=== PATIENT | male | born 1945 | race Caucasian/White ===

== ENCOUNTER 2021-05-31 12:04 | Emergency (ER) | payer MEDICARE, SELFPAY ==
[2021-05-31] VITALS (36 sets, daily range): BP systolic 131–155; BP diastolic 57–101; PULSE 69–86; RESP 14–25; TEMP 36.4; O2SAT 63–100
--- NOTE | ~2021-05-31 | XR_ITS ---
EXAMINATION: XR chest 2V DATE: 05/31/2021 12:27 INDICATION: Weakness. TECHNIQUE: Frontal and lateral views of the chest were obtained. COMPARISON: None. FINDINGS: The chest demonstrates clear lungs without pneumonia, pleural effusion, or pneumothorax. Th e heart size is normal. IMPRESSION: 1. No acute cardiopulmonary disease. Reviewed, dictated and finalized at location A.
--- NOTE | 2021-05-31 12:10 | ECG_ITS ---
Measurements Intervals [place] Rate: 77 P: WI: 0 QRS: 38 QRSD: 76 T: 28 QT: 377 QTc: 428 Interpretive Statements ATRIAL FIBRILLATION LOW VOLTAGE EKG NO PREVIOUS ECG AVAILABLE FOR COMPARISON Electronically Signed On 05-31-2021 18:56:58 CDT by Adriana Pollock M.D.
[2021-05-31 12:30] LABS: Basophils Percent Auto 0.4 % (0.2-1.2); Eosinophils Absolute Auto 0.6 K/mm3 (0-0.3); Eosinophils Percent Auto 11.2 % (0-4.4); Hematocrit 29.3 % (42.0-52.0); Hemoglobin 9.2 g/dL (14.0-18.0); Immature Granulocyte Absolute 0.03 K/mm3 (0.00-0.031); Immature Granulocyte Percent A 0.5 % (0-0.5); Lymphocytes Absolute Auto 0.57 K/mm3 (0.9-3.2); Lymphocytes Percent Auto 10.2 % (18.3-44.2); Mean Corpuscular HGB Conc 31.4 g/dl (32-36); Mean Corpuscular Hemoglobin 29.6 pg (26-34); Mean Corpuscular Volume 94.2 fl (80-100); Mean Platelet Volume 7.9 fl (7.4-10.4); Monocytes Absolute Auto 0.5 K/mm3 (0.1-0.6); Monocytes Percent Auto 9.4 % (2.6-8.5); Neutrophils Absolute Auto 3.8 K/mm3 (1.3-6.7); Neutrophils Percent Auto 68.3 % (45.5-73.1); Platelet Count Result 133 k/mm3 (150-375); Red Blood Count 3.11 M/mm3 (4.6-6.20); Red Cell Distribution Width 14.6 % (11.5-14.5); White Blood Count 5.6 K/mm3 (4.5-10.0)
--- NOTE | 2021-05-31 12:31 | PC.NURSE ---
EDP at bedside to assess pt.
[2021-05-31 12:36] LABS: Alanine Aminotransferase 12 U/L (4-50); Albumin Level 3.4 g/dL (3.5-5.1); Alkaline Phosphatase 62 U/L (38-126); Anion Gap 7 mmol/L (8-16); Aspartate Amino Transferase 23 U/L (17-59); Bilirubin,Total 0.4 mg/dL (0.2-1.3); Blood Urea Nitrogen 21 mg/dL (9-20); Calcium 8.5 mg/dL (8.4-10.2); Carbon Dioxide 24 mmol/L (22-30); Chloride 106 mmol/L (98-107); Estimated CRCL calculation 40 ml/min; Estimated Glomerular Filt Rate 42; Glucose 116 mg/dL (65-110); Potassium 4.6 mmol/L (3.4-5.0); Sodium 137 mmol/L (137-145)
--- NOTE | 2021-05-31 12:52 | ED.GENADULT ---
HPI - General Adult General Chief complaint: Weakness Stated complaint: weakness Time Seen by Provider: 05/31/21 12:18 History of Present Illness HPI narrative: Patient is a 76-year-old male who presents the ER with reports of weakness. Patient was discharged yesterday from [facility]. He had been there over the last month. He had been admitted for weakness and a sacral decubitus ulcer and foot wound. A visiting nurse came out to see him today. He was walking towards his bed when he became weak and cannot sit down on the bed. He slid down onto the floor. He did not strike his head or lose consciousness. Patient was sent here due to persistent weakness. Patient reports he is not using a walker which is something he supposed to do. He was no medical complaints at this time. Unfortunately is a poor historian cannot give any of his past medical history/surgical history. He thought he was actually in the hospital and not actually custodial. Related Data Allergies Allergy/AdvReac Type Severity Reaction Status Date / Time No Known Allergies Allergy Verified 05/31/21 13:47 Review of Systems Review of Systems: All systems reviewed & are unremarkable except as noted in HPI and below Constitutional: Constitutional: Denies chills, Denies fever(s) and Reports weakness ENT: Denies nasal congestion and Denies sore throat Cardiovascular: Cardiovascular: Denies chest pain, Denies rapid heart rate and Denies radiating jaw, neck or arm pain Respiratory: Respiratory: Denies cough and Denies dyspnea Gastrointestinal: Gastrointestinal: Denies abdominal pain, Denies nausea and Denies vomiting Neurologic: Denies headache(s), Denies focal weakness and Denies numbness Exam Narrative: GENERAL: Well-appearing, well-nourished, and in no acute distress. HEAD: Normocephalic, atraumatic. EYES: PERRL and EOMI. CHEST: Clear to auscultation. No respiratory distress. HEART: Irregular regular rate and rhythm. Normal peripheral pulses. ABDOMEN: Soft, nontender, nondistended. EXTREMITIES: Normal range of motion. 2+ edema. SKIN: Dry ashy skin. Chronic darkening to the chest and back. Venous stasis changes lower extremities. NEURO: Alert and oriented x3. PSYCH: Normal mood and affect. Course Course Emergency Course: Patient ambulated well with walker. Family present feels comfortable taking him home. Vital Signs Vital signs: Vital Signs Temperature 97.6 F 05/31/21 12:03 Pulse Rate 78 05/31/21 12:03 Respiratory Rate 18 05/31/21 12:03 Blood Pressure 154/101 H 05/31/21 12:03 Pulse Oximetry 100 05/31/21 12:03 Temperature 97.6 F 05/31/21 12:03 Pulse Rate 73 05/31/21 15:01 Respiratory Rate 15 05/31/21 15:01 Blood Pressure 149/79 H 05/31/21 15:01 Pulse Oximetry 63 L 05/31/21 15:01 Medical Decision Making Vital Signs Vital Signs: Vital Signs Temperature 97.6 F 05/31/21 12:03 Pulse Rate 78 05/31/21 12:03 Respiratory Rate 18 05/31/21 12:03 Blood Pressure 154/101 H 05/31/21 12:03 Pulse Oximetry 100 05/31/21 12:03 Temperature 97.6 F 05/31/21 12:03 Pulse Rate 73 05/31/21 15:01 Respiratory Rate 15 05/31/21 15:01 Blood Pressure 149/79 H 05/31/21 15:01 Pulse Oximetry 63 L 05/31/21 15:01 Lab Data Result diagrams: 05/31/21 12:20 05/31/21 12:20 Labs: Lab Results 05/31/21 05/31/21 05/31/21 Range/Units 12:20 12:20 14:02 WBC 5.6 (4.5-10.0) K/mm3 RBC 3.11 L (4.6-6.20) M/mm3 Hgb 9.2 L (14.0-18.0) g/dL Hct 29.3 L (42.0-52.0) % MCV 94.2 (80-100) fl MCH 29.6 (26-34) pg MCHC 31.4 L (32-36) g/dl RDW 14.6 H (11.5-14.5) % Plt Count 133 L (150-375) k/mm3 MPV 7.9 (7.4-10.4) fl Immature Gran % (Auto) 0.5 (0-0.5) % Neut % (Auto) 68.3 (45.5-73.1) % Lymph % (Auto) 10.2 L (18.3-44.2) % [place] % (Auto) 9.4 H (2.6-8.5) % Eos % (Auto) 11.2 H (0-4.4) % Baso
--- NOTE | 2021-05-31 13:02 | PC.NURSE ---
Spoke with patient's brother Lui Kc and provided update on patient. Patient's brother provided phone number for patient's daughter. Attempted to call patient's daughter but received VM. VM box is full so this RN was unable to leave message. Will attempt to call again. Lui Kc [phone] Rhianna Kc [phone]
[2021-05-31 14:11] LABS: Add Urine Microscopic? YES; Appearance Urine Clear (Clear); Bilirubin Urine Negative (Negative); Blood Urine 1+ (Negative); Color Urine Yellow (Yellow); Glucose Urine UA Negative (Negative); Ketones Urine Negative (Negative); Leukocyte Esterase Ur 1+ LEU/UL (Negative); Nitrate Urine Negative (Negative); Protein Urine Negative (Negative); Specific Grav Ur 1.014 (1.001-1.035); Squamous Epithelial Cell Urine Rare /hpf (Few); Urobilinogen Urine Negative mg/dL (<2.0); WBC Urine 21-30 /hpf
--- NOTE | 2021-05-31 14:50 | PC.NURSE ---
Patient ambulated in room with product development technician with walker without difficultly. made aware.
--- NOTE | 2021-05-31 15:46 | PC.NURSE ---
Patient's daughter at bedside. MD made aware.
== END 2021-05-31 16:43 | disposition home or self-care (01) ==
PROVIDERS: Emergency Medicine; Emergency Provider Emergency Medicine
DX: N39.0 Urinary tract infection, site not specified (principal); R53.1 Weakness
CPT/HCPCS: 36415; 71046; 80053; 81001; 85025; 87086; 87147; 87181; 87186; 93005; 99283